=== PATIENT | male | born 1970 | race Two or more races ===

== ENCOUNTER 2018-05-27 04:44 | Emergency (ER) | payer OTHER ==
[~2018-05-27] VITALS: Ht 160 cm; Wt 77.3 kg
[2018-05-27] MEDS ORDERED: SODIUM CHLORIDE 0.9% 1,000 ML IV ONE (05:09)
[2018-05-27] MEDS ORDERED: MORPHINE SULFATE 4 MG/ML CPJ (NOT FOR IM USE) IV STA (05:09)
[2018-05-27 05:35] LABS: CHLORIDE 104 mEq/L (98-107); HEMATOCRIT. 58.5 % (42.0-52.0); HEMOGLOBIN. 20.1 g/dL (14.0-18.0); MEAN CORPUSCULAR HEMOGLOBIN 30.6 pg (28.0-32.0); MEAN CORPUSCULAR VOLUME 89.3 fL (80.0-94.0); MEAN PLATELET VOLUME 8.6 fl (7.4-10.4); PLATELET 256 x1000/uL (130-400); RED BLOOD CELL COUNT 6.55 mill/uL (4.7-6.1); RED CELL DISTRIBUTION WIDTH 13.3 % (11.6-14.6)
[2018-05-27 06:10] LABS: INR 1.2; PROTHROMBIN TIME 11.9 sec (9.1-11.1)
[2018-05-27 06:25] LABS: CLARITY URINE CLEAR (CLEAR); COLOR URINE YELLOW (YELLOW); KETONES URINE NEGATIVE (NEGATIVE); LEUKOCYTE ESTERASE URINE NEGATIVE (NEGATIVE); NITRITE URINE NEGATIVE (NEGATIVE); OCCULT BLOOD URINE NEGATIVE (NEGATIVE); PROTEIN URINE NEGATIVE (NEGATIVE); SPECIFIC GRAVITY URINE 1.002 (1.005-1.030); UROBILINOGEN URINE 0.2 E.U./dL (0.2-1.0)
[2018-05-27 06:30] LABS: PLATELET ESTIMATE NORMAL
[2018-05-27] MEDS ORDERED: KETOROLAC 15MG/ML VIAL IV ONE (07:00)
[2018-05-27] MEDS ORDERED: DIAZEPAM 5 MG TABLET PO ONE (07:00)
[2018-05-27 07:18] VITALS: BP 116/86
== END 2018-05-27 07:30 | disposition home or self-care (01) ==
LOC: ER 04:44
DX: S06.0X0A Concussion without loss of consciousness, initial encounter (principal); S30.0XXA Contusion of lower back and pelvis, initial encounter; R10.30 Lower abdominal pain, unspecified; W01.0XXA Fall on same level from slipping, tripping and stumbling without subsequent striking against object, initial encounter; R03.0 Elevated blood-pressure reading, without diagnosis of hypertension; R53.1 Weakness; Y93.9 Activity, unspecified; W18.30XA Fall on same level, unspecified, initial encounter; Y93.89 Activity, other specified; Y92.89 Other specified places as the place of occurrence of the external cause
CPT/HCPCS: 36415; 70450; 72131; 74176; 80053; 81003; 82962; 85025; 85610; 96361; 96374; 96375; 99285; J1885; J2270; J7030; Z7610

== ENCOUNTER 2018-05-27 14:08 | Emergency (ER) | payer OTHER ==
[~2018-05-27] VITALS: Ht 165.1 cm; Wt 76.0 kg
[2018-05-27] MEDS ORDERED: KETOROLAC 60MG/2ML VIAL IM ONE (17:00)
[2018-05-27 17:20] VITALS: BP 141/84
== END 2018-05-27 17:07 | disposition home or self-care (01) ==
LOC: ER 14:15
DX: S30.0XXA Contusion of lower back and pelvis, initial encounter (principal); W10.9XXA Fall (on) (from) unspecified stairs and steps, initial encounter; Y93.89 Activity, other specified; Y92.89 Other specified places as the place of occurrence of the external cause; R03.0 Elevated blood-pressure reading, without diagnosis of hypertension
CPT/HCPCS: 72100; 96372; 99284; J1885

== ENCOUNTER 2018-05-28 07:09 | Inpatient (IN) | payer OTHER ==
[~2018-05-28] VITALS: Ht 172.7 cm; Wt 68.5 kg
[2018-05-28 09:30] LABS: BASOPHILS % 0.3 % (0.0-2.0); EOSINOPHILS % 0.2 % (0.0-5.0); HEMATOCRIT. 55.8 % (42.0-52.0); HEMOGLOBIN. 19.2 g/dL (14.0-18.0); MEAN CORPUSCULAR HEMOGLOBIN 31.1 pg (28.0-32.0); MEAN PLATELET VOLUME 8.7 fl (7.4-10.4); MONOCYTES % 6.7 % (2.0-8.0); NEUTROPHILS % 75.8 % (40.0-76.0); PLATELET 232 x1000/uL (130-400); RED CELL DISTRIBUTION WIDTH 13.6 % (11.6-14.6)
[2018-05-28 09:37] LABS: CHLORIDE 104 mEq/L (98-107)
[2018-05-28 09:39] LABS: INR 1.2; PARTIAL THROMBOPLASTIN TIME 27.9 sec (23.4-31.0)
[2018-05-28 09:41] LABS: AMMONIA < 10 uMol/L (<32)
[2018-05-28 09:42] LABS: ETHANOL BLOOD < 10 mg/dL
[2018-05-28] MEDS ORDERED: LIDOCAINE HCL 1% 20ML VIAL (Pyxis) INJ INFIL ONE (10:45)
[2018-05-28] MEDS ORDERED: LIDOCAINE HCL/PF 1% 10 MG/ML 5ML VIAL IJ ONE (11:15)
[2018-05-28] MEDS ORDERED: TRAMADOL 50MG TABLET PO PRN (13:15)
[2018-05-28] MEDS ORDERED: ONDANSETRON HCL 4MG/2ML INJ IV PRN (13:15)
[2018-05-28] MEDS ORDERED: ACETAMINOPHEN 325MG TABLET PO PRN (13:15)
[2018-05-28] MEDS ORDERED: GUAIFENESIN 200MG/10ML SUGAR FREE UDC PO PRN (13:15)
[2018-05-28] MEDS ORDERED: NA PHOS,M-B/NA PHOS,DI-BA ENEMA 118ML PR PRN (13:15)
[2018-05-28] MEDS ORDERED: CLONIDINE 0.1MG TABLET PO PRN (13:15)
[2018-05-28] MEDS ORDERED: DOCUSATE SODIUM 100MG CAPSULE PO PRN (13:15)
[2018-05-28] MEDS ORDERED: DIPHENHYDRAMINE 50MG/ML VIAL IV PRN (13:15)
[2018-05-28] MEDS ORDERED: MAGNESIUM/ALUMINUM HYDROXIDE/SIMETHICONE 30ML UDC PO PRN (13:15)
[2018-05-28] MEDS ORDERED: NITROGLYCERIN 0.4MG TABLET SL SL PRN (13:15)
[2018-05-28] MEDS ORDERED: IPRATROPIUM/ALBUTEROL 0.5-3(2.5)MG/3ML NEB INH PRN (13:15)
[2018-05-28] MEDS ORDERED: IOHEXOL-300 100 ML BOTTLE ONE (15:30)
[2018-05-28 16:00] VITALS: BP 117/88
[2018-05-28 18:57] VITALS: BP 117/88
[2018-05-28 20:00] VITALS: BP 127/93
[2018-05-28] MEDS: GUAIFENESIN/DM 600MG/30MG ER TAB 12HR PO SCH (20:59)
[2018-05-28] MEDS: SODIUM CHLORIDE 0.9% 1,000 ML IV SCH (21:00)
[2018-05-28] MEDS ORDERED: ZOLPIDEM TARTRATE 5MG TABLET PO PRN (21:00)
[2018-05-29] VITALS: BP 127/78
[2018-05-29 04:00] VITALS: BP 100/61
[2018-05-29] MEDS: SODIUM CHLORIDE 0.9% 1,000 ML IV SCH (05:54)
[2018-05-29 08:00] VITALS: BP 134/96
[2018-05-29] MEDS ORDERED: PANTOPRAZOLE SODIUM 40 MG/VIAL IV SCH (09:00)
[2018-05-29] MEDS: GUAIFENESIN/DM 600MG/30MG ER TAB 12HR PO SCH (09:02)
[2018-05-29 11:15] LABS: BASOPHILS % 0.3 % (0.0-2.0); EOSINOPHILS % 1.2 % (0.0-5.0); HEMATOCRIT. 51.5 % (42.0-52.0); HEMOGLOBIN. 17.5 g/dL (14.0-18.0); LYMPHOCYTES % 34.1 % (20.0-50.0); MEAN CORPUSCULAR HEMOGLOBIN 30.6 pg (28.0-32.0); MEAN CORPUSCULAR VOLUME 90.2 fL (80.0-94.0); MEAN PLATELET VOLUME 8.9 fl (7.4-10.4); MONOCYTES % 5.9 % (2.0-8.0); NEUTROPHILS % 58.5 % (40.0-76.0); PLATELET 195 x1000/uL (130-400); RED CELL DISTRIBUTION WIDTH 13.5 % (11.6-14.6)
[2018-05-29 11:55] LABS: CHLORIDE 105 mEq/L (98-107)
[2018-05-29 12:00] VITALS: BP 108/80
[2018-05-29 12:03] LABS: *AMPHETAMINES SCREEN URINE NEGATIVE (NEGATIVE); *BARBITURATES SCREEN URINE NEGATIVE (NEGATIVE); *BENZODIAZEPINES SCREEN URINE NEGATIVE (NEGATIVE); *COCAINE SCREEN URINE NEGATIVE (NEGATIVE)
[2018-05-29 12:06] LABS: METHADONE URINE SCREEN NEGATIVE (NEGATIVE); OPIATES URINE SCREEN NEGATIVE (NEGATIVE)
[2018-05-29 12:07] LABS: CANNABINOID URINE SCREEN NEGATIVE (NEGATIVE); PHENCYCLIDINE URINE SCREEN NEGATIVE (NEGATIVE)
[2018-05-29 12:08] VITALS: BP 108/80
[2018-05-29] MEDS ORDERED: LEVOFLOXACIN 250MG TABLET PO SCH (13:30)
== END 2018-05-29 15:45 | disposition home or self-care (01) | DRG 241 ==
LOC: ER 07:09 → ENRESERV 14:17 → 6EST 17:04
PROVIDERS: ADMIT Internal Medicine; ATTEND Internal Medicine
DX: K29.70 Gastritis, unspecified, without bleeding (principal); J18.9 Pneumonia, unspecified organism; D75.1 Secondary polycythemia; E86.0 Dehydration; I10 Essential (primary) hypertension; Z78.9 Other specified health status; Z82.5 Family history of asthma and other chronic lower respiratory diseases; Z86.12 Personal history of poliomyelitis
CPT/HCPCS: 36415; 71045; 71270; 80061; 80305; 82140; 83036; 84443; 87116; 93970; 99285; C9113; G0482; J3490; J7030; Q9967